=== PATIENT | female | born 2000 | race Caucasian/White ===

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

== ENCOUNTER 2020-02-15 13:14 | Emergency (ER) | payer SELFPAY ==
[2020-02-15 14:01] LABS: Clarity Hazy (Clear); Leukocyte Unable to Interpret Leu/uL (Negative); Nitrite Unable to Interpret (Negative); Protein, Urine (Dipstick) Negative (Neg-Trace); Specific Gravity, Urine 1.024 (1.002-1.036); pH, Urine 5.4 (5.0-9.0)
[2020-02-15 14:02] LABS: Bilirubin Unable to Interpret (Negative); Blood, Urine Unable to Interpret (Negative); Glucose, Urine (Dipstick) Unable to Interpret mg/dL (Negative); Ketone, Urine Unable to Interpret mg/dL (Negative); Urobilinogen UNABLE TO INTERPRET mg/dL (Less than 2)
[2020-02-15 14:03] LABS: Bacteria/HPF None Seen HPF (None Seen); RBC/HPF None Seen HPF (0-3); Squamous Epithelial None Seen HPF (0-3)
[2020-02-15 14:17] LABS: #Lymphocytes 1.2 thou/uL (1.20-3.40); #Monocytes 0.5 thou/uL (0.11-0.59); #Neutrophils 6.6 thou/uL (1.40-6.50); %Basophils 0.1 % (0.0-1.0); %Eosinophils 0.4 % (0.0-10.0); %Lymphocytes 14.5 % (28.0-48.0); %Monocytes 6.3 % (0.0-4.0); %Neutrophils 78.8 % (31.0-61.0); Hemoglobin 12.7 g/dL (12.0-16.0); Mean Corpuscular Hemoglobin 32.6 pg (25.0-35.0); Mean Corpuscular Volume 98.9 fL (78.0-98.0); Mean Platelet Volume 6.8 fL (7.4-10.4); Platelet Count 211 thou/uL (130-400); White Blood Cell (WBC) Count 8.4 thou/uL (4.8-10.8)
[2020-02-15 14:20] LABS: BHCG - Serum Negative (NEGATIVE); Pregs Control Background? CLEAR/WHITE (CLR/WHITE); Pregs Control Bar Appear? YES (CONTROL BAR)
[2020-02-15 14:39] LABS: ALT (SGPT) 7 U/L (8-55); AST (SGOT) 10 U/L (5-34); Albumin 4.4 g/dL (3.5-5.0); Alkaline Phosphatase 74 U/L (40-100); Anion Gap 14 mmol/L (10-20); BUN (Urea Nitrogen) 8 mg/dL (7.0-18.7); Bilirubin, Total 0.5 mg/dL (0.2-1.2); CK (CPK) 55 U/L (29-168); Calc. Creatinine Clearance 0 mL/min (70-130); Calcium 9.8 mg/dL (7.8-10.44); Carbon Dioxide 24 mmol/L (22-29); Chloride 103 mmol/L (98-107); Estimated GFR-MDRD 88; Globulin 3.6 g/dL (2.4-3.5); Glucose 92 mg/dL (70-105); Potassium 4.1 mmol/L (3.5-5.1); Sodium 137 mmol/L (136-145)
--- NOTE | 2020-02-15 15:18 | CT ---
CT ABDOMEN NONCONTRAST CT PELVIS NONCONTRAST: (Urolithiasis protocol) DATE: 02/15/2020 HISTORY: 20-year-old female with hematuria and back pain TECHNIQUE: IV injection of iodinated contrast media: None Oral contrast media: None FINDINGS: Other than for urolithiasis, the lack of IV and oral contrast limits the evaluation. Liver: No contour abnormalities. Spleen: No splenomegaly. Pancreas: No contour abnormalities. Adrenals: No mass. Kidneys: No nephrolithiasis or overt hydronephrosis. Ureters: No calculi. Bladder: No calculi. Abdominal aorta: No aneurysm. Small bowel: No dilation. Colon: No adjacent fat stranding. Appendix: No dilation or adjacent fat stranding. Free air: None Free fluid: None Lumbar spine: Mild left-convex curvature. No central spinal canal stenosis, high-grade neural foramin al stenosis, spondylolysis, or spondylolisthesis. IMPRESSION: 1. No acute findings. 2. No urolithiasis or obstructive uropathy.
== END 2020-02-15 16:47 | disposition home or self-care (01) ==
LOC: ERS 13:14
DX: N30.00 Acute cystitis without hematuria (principal); Z87.891 Personal history of nicotine dependence
CPT/HCPCS: 36415; 74176; 80053; 81003; 81015; 82550; 83605; 84703; 85025; 96360; 96361